=== PATIENT | female | born 1965 | race Caucasian/White ===

== ENCOUNTER → 2017-06-26 | Outpatient (CLI) | payer OTHER ==
[~2017-06-26] MED LIST: BIOT25005 PO; BIOT5TAB PO; BUSP7.5T3 PO; FEXO60TA24 PO; OMEP-110 PO
== END ==
LOC: STAR 15:46 → MERGE 16:00
PROVIDERS: ATTEND Obstetrics & Gynecology Female Pelvic Medicine and Reconstructive Surgery
DX: Z02.9 Encounter for administrative examinations, unspecified (principal)

== ENCOUNTER 2017-06-30 11:51 | Observation (INO) | payer OTHER ==
[~2017-06-30] VITALS: Ht 167.6 cm; Wt 107.4 kg
[2017-06-30] MEDS: LORATADINE 10 MG TABLET PO SCH (09:00)
[~2017-06-30 11:51] MED LIST changes: +BUPIVACAINE/PF 0.25% ONE; +EPINEPHRINE 1 MG/ML, 1ML ONE; +NEOMY/POLYMYXIN B GU IRR. 1 ML IRRIG ONE
[2017-06-30] MEDS ORDERED: MIDAZOLAM 1 MG/ML, 2ML ONE (15:56)
[2017-06-30] MEDS ORDERED: FENTANYL PF 250 MCG/5ML ONE (15:56)
[2017-06-30] MEDS ORDERED: NEOSTIGMINE 1 MG/ML, 10ML ONE (16:07)
[2017-06-30] MEDS ORDERED: PROPOFOL 10 MG/ML, 20ML ONE (16:07)
[2017-06-30] MEDS ORDERED: DEXAMETHASONE 4 MG/ML, 1ML ONE (16:07)
[2017-06-30] MEDS ORDERED: ONDANSETRON 2MG/ML, 2ML ONE (16:07)
[2017-06-30] MEDS ORDERED: GLYCOPYRROLATE 0.2MG/1ML, 5ML ONE (16:07)
[2017-06-30] MEDS ORDERED: CEFAZOLIN 1,000 MG ONE (16:07)
[2017-06-30] MEDS ORDERED: ROCURONIUM 10 MG/ML ONE (16:07)
[2017-06-30] MEDS ORDERED: OXYcodone 5 MG/5 ML ORAL.SOL UDC PO PRN (17:00)
[2017-06-30] MEDS ORDERED: hydrALAzine 20 MG/ML, 1ML IV PRN (17:00)
[2017-06-30] MEDS ORDERED: PROMETHAZINE 25 MG/ML, 1ML IV PRN (17:00)
[2017-06-30] MEDS ORDERED: METOPROLOL 1 MG/ML, 5ML IV PRN (17:00)
[2017-06-30] MEDS ORDERED: MEPERIDINE/PF 25MG/0.5ML IVPush PRN (17:00)
[2017-06-30] MEDS ORDERED: ACETAMINOPHEN 325 MG TABLET PO PRN (17:00)
[2017-06-30] MEDS ORDERED: HYDROmorphone 1 MG/ML, 1ML IV PRN ×2 (17:00→20:00)
[2017-06-30] MEDS ORDERED: ALBUTEROL SULFATE 2.5 MG/3 ML NPPB PRN (17:00)
[2017-06-30] MEDS ORDERED: FUROSEMIDE 20 MG/2 ML ONE (17:09)
[2017-06-30] MEDS ORDERED: ACETAMINOPHEN 650 MG/20.3 ML UDC ONE (17:46)
[2017-06-30] MEDS ORDERED: OXYcodone 5 MG/5 ML ORAL.SOL UDC ONE (17:46)
[2017-06-30] MEDS ORDERED: FENTANYL PF 100 MCG/2ML ONE (17:46)
[2017-06-30] MEDS: FENTANYL PF 100 MCG/2ML IV PRN ×3 (17:47→18:05)
[2017-06-30] MEDS ORDERED: MEPERIDINE/PF 25MG/0.5ML ONE (18:06)
[2017-06-30] MEDS ORDERED: KETOROLAC 30 MG/1 ML ONE ×2 (18:15→22:18)
[2017-06-30] MEDS ORDERED: KETOROLAC 30 MG/1 ML IVPush PRN (18:30)
[2017-06-30] MEDS ORDERED: ONDANSETRON 2MG/ML, 2ML IV PRN (20:00)
[2017-06-30] MEDS ORDERED: IBUPROFEN 600 MG TABLET PO PRN (20:00)
[2017-06-30] MEDS ORDERED: SODIUM CHLORIDE 0.9%, 500ML IVBOLUS PRN ×2 (20:00)
[2017-06-30] MEDS: KETOROLAC 30 MG/1 ML IV PRN (22:20)
[2017-06-30] MEDS: BUSPIRONE 5 MG TABLET PO SCH (22:56)
[2017-07-01] MEDS: OXYcodone/APAP 5/325MG TABLET PO PRN ×4 (00:32→17:51)
[2017-07-01] MEDS ORDERED: HYDROcodone/APAP 5/325 TABLET PO PRN (01:30)
[2017-07-01 03:48] VITALS: BP 99/61
[2017-07-01] MEDS: KETOROLAC 30 MG/1 ML IV PRN ×2 (05:05→11:23)
[2017-07-01] MEDS ORDERED: OMEPRAZOLE 20 MG CAPSULE.DR PO SCH (07:30)
[2017-07-01 07:58] VITALS: BP 101/66
[2017-07-01] MEDS: BUSPIRONE 5 MG TABLET PO SCH (08:20)
[2017-07-01] MEDS: LORATADINE 10 MG TABLET PO SCH (08:20)
[2017-07-01 13:53] VITALS: BP 98/65
[2017-07-01 17:50] VITALS: BP 110/74
== END 2017-07-01 18:21 | disposition home or self-care (01) ==
LOC: OUT 11:51 → 4NOR 19:46 → OUT 20:21
PROVIDERS: ADMIT Obstetrics & Gynecology Female Pelvic Medicine and Reconstructive Surgery; ATTEND Obstetrics & Gynecology Female Pelvic Medicine and Reconstructive Surgery
DX: N39.46 Mixed incontinence (principal); N94.10 Unspecified dyspareunia; N81.5 Vaginal enterocele; I10 Essential (primary) hypertension; K66.0 Peritoneal adhesions (postprocedural) (postinfection); N81.6 Rectocele; K46.9 Unspecified abdominal hernia without obstruction or gangrene; N99.3 Prolapse of vaginal vault after hysterectomy; K21.9 Gastro-esophageal reflux disease without esophagitis
CPT/HCPCS: 57265; 57288; 58661; 88305; 96374; 96375; 96376; G0378; J0171; J0690; J1100; J1885; J2175; J2250; J2405; J2704; J2710; J3010; J3490; J1940